=== PATIENT | male | born 1950 | race Caucasian/White ===

== ENCOUNTER 2016-07-15 10:37 | Inpatient (IN) | payer OTHER ==
[~2016-07-15] VITALS: Ht 177.8 cm; Wt 106.4 kg
[2016-07-15 11:31] LABS: EOSINOPHIL (%) 0.7 % (0-5); EOSINOPHIL COUNT 0.1 K/uL (0-0.3); HEMATOCRIT 44.5 % (38.0-50.0); IMMATURE GRANULOCYTE (%) 0.3 % (0.0-0.7); INSTRUMENT ABS NEUTROPHIL CT 4.9 K/uL; LYMPHOCYTE COUNT 1.3 K/uL (1.0-2.8); MCH 27.9 PG (29.0-34.0); MCHC 33.9 G/DL (30.0-36.0); MCV 82.1 FL (86-99); MEAN PLAT.VOLUME 9.9 uM^3 (9.0-12.4); MONOCYTE (%) 8.7 % (3-12); MONOCYTE COUNT 0.6 K/uL (0-0.8); NEUTROPHIL (%) 71.5 % (45-76); NEUTROPHIL COUNT 4.9 K/uL (1.8-6.4); PLATELET COUNT 263 K/uL (156-360); RBC DIS.WIDTH-CV 12.8 % (11.8-14.6); RBC DIS.WIDTH-SD 38.1 % (39-53); RED BLOOD COUNT 5.42 M/uL (4.00-5.50); WHITE BLOOD COUNT 6.9 K/uL (4.1-10.2)
[2016-07-15 11:41] LABS: PROTHROMBIN TIME 10.2 (9.2-11.2); PTT 25.4 (25-32)
[2016-07-15 11:42] LABS: CHLORIDE 107 mEq/L (99-109); POTASSIUM 3.9 mEq/L (3.7-5.4); SODIUM 138 mEq/L (136-147)
[2016-07-15 11:44] LABS: GLUCOSE 158 mg/dL (70-99)
[2016-07-15 11:45] LABS: ANION GAP 8 MEQ/L (2-14)
[2016-07-15 11:47] LABS: GFR ESTIMATE (CALCULATED) > 59 mL/min/
[2016-07-15 11:48] LABS: UREA NITROGEN (BUN) 16 mg/dL (9-23)
[2016-07-15 11:52] LABS: TROP-I INTERPRETATION NEGATIVE; TROPONIN-I 0.02 ng/mL (0.0-0.30)
[2016-07-15] MEDS ORDERED: FOSINOPRIL SODI20 MG PO (13:03)
[2016-07-15] MEDS ORDERED: ATORVASTATIN CA10 MG PO (13:03)
[2016-07-15] MEDS ORDERED: ZYLOPRIM300 MG PO (13:04)
[2016-07-15] MEDS ORDERED: ASPIRIN325 MG PO (13:04)
[2016-07-15] MEDS ORDERED: METFORMIN HCL500 MG PO (13:04)
[2016-07-15] MEDS ORDERED: HUMULIN R500 UNITS/ SC (13:08)
[2016-07-15 15:31] VITALS: BP 164/77
[2016-07-15 18:14] LABS: POINT-OF-CARE METER ID UU14174225; POINT-OF-CARE USER ID STWAMT
[2016-07-15 20:14] VITALS: BP 156/79
[2016-07-15 21:37] LABS: POINT-OF-CARE METER ID UU14174225
[2016-07-16] VITALS (7 sets, daily range): BP systolic 129–181; BP diastolic 75–93
[2016-07-16 06:51] LABS: HDL CHOLESTEROL 34 MG/DL (Desirable>=40); LDL CHOLESTEROL 114 mg/dL (Desirable<100); NON-HDL CHOLESTEROL 145 mg/dL (Desirable<160); TOTAL CHOLESTEROL 179 mg/dL (Desirable<200); TRIGLYCERIDES 154 MG/DL (Normal: <150)
[2016-07-16 08:09] LABS: Estimated Average Glucose 223 mg/dL (70-123); HEMOGLOBIN A1c (GLYCOHEMOGLOB) 9.4 % HGB (Below 5.7)
[2016-07-16 12:06] LABS: POINT-OF-CARE METER ID UU14188625
[2016-07-16 16:47] LABS: POINT-OF-CARE METER ID UU14188625
[2016-07-16 21:28] LABS: POINT-OF-CARE METER ID UU14174225
[2016-07-17 03:27] VITALS: BP 131/82
[2016-07-17 08:21] VITALS: BP 163/77
[2016-07-17] MEDS ORDERED: ASPIR-LOW81 MG PO (10:02)
[2016-07-17] MEDS ORDERED: LEVEMIR100 UNIT/2 SC (10:02)
[2016-07-17] MEDS ORDERED: NOVOLOG PE100 UNITS/ SC (10:02)
[2016-07-17] MEDS ORDERED: ATORVASTATIN CA40 MG PO (10:02)
== END 2016-07-17 13:13 | DRG 65 ==
LOC: EME → EDBD 10:37 → EME 10:37 → 5SOUTH 12:14 → EDOF 12:14 → 5SOUTH 15:10
PROVIDERS: Emergency Medicine; Hospitalist; Internal Medicine
DX: I63.8 Other cerebral infarction (principal); G81.91 Hemiplegia, unspecified affecting right dominant side; E11.9 Type 2 diabetes mellitus without complications; E78.5 Hyperlipidemia, unspecified; I10 Essential (primary) hypertension; R29.810 Facial weakness; M10.9 Gout, unspecified; J32.0 Chronic maxillary sinusitis; I67.2 Cerebral atherosclerosis; R26.0 Ataxic gait; I73.9 Peripheral vascular disease, unspecified; Z87.442 Personal history of urinary calculi; Z79.84 Long term (current) use of oral hypoglycemic drugs; Z79.82 Long term (current) use of aspirin; Z79.4 Long term (current) use of insulin; Z82.49 Family history of ischemic heart disease and other diseases of the circulatory system
CPT/HCPCS: 70450; 70551; 70553; 71010; 74230; 80048; 80061; 82948; 83036; 84484; 85025; 85610; 85730; 92610 GN; 92611 GN; 93005; 93306; 93880; 99281; 99284; J1650; J1815; J7030

== ENCOUNTER 2016-07-17 13:20 | Inpatient (IN) | payer OTHER ==
[~2016-07-17] VITALS: Ht 177.8 cm; Wt 104.7 kg
[~2016-07-17 13:20] MED LIST: ASPIR-LOW81 MG PO; ASPIRIN325 MG PO; ATORVASTATIN CA10 MG PO; ATORVASTATIN CA40 MG PO; FOSINOPRIL SODI20 MG PO; HUMULIN R500 UNITS/ SC; LEVEMIR100 UNIT/2 SC; METFORMIN HCL500 MG PO; NOVOLOG PE100 UNITS/ SC; ZYLOPRIM300 MG PO
[2016-07-17 13:43] VITALS: BP 152/76
[2016-07-17 15:50] VITALS: BP 166/85
[2016-07-17 16:53] LABS: POINT-OF-CARE METER ID UU13113720
[2016-07-17 21:32] LABS: POINT-OF-CARE METER ID UU13113720
[2016-07-17 22:55] VITALS: BP 139/70
[2016-07-18 05:21] VITALS: BP 146/75
[2016-07-18 05:54] LABS: HEMATOCRIT 46.2 % (38.0-50.0); MCH 27.7 PG (29.0-34.0); MCHC 33.5 G/DL (30.0-36.0); MCV 82.6 FL (86-99); PLATELET COUNT 264 K/uL (156-360); RBC DIS.WIDTH-CV 12.9 % (11.8-14.6); RBC DIS.WIDTH-SD 38.5 % (39-53); RED BLOOD COUNT 5.59 M/uL (4.00-5.50); WHITE BLOOD COUNT 6.2 K/uL (4.1-10.2)
[2016-07-18 06:21] LABS: ALKALINE PHOSPHATASE 71 IU/L (3-129); ANION GAP 7 MEQ/L (2-14); CHLORIDE 106 MEQ/L (99-109); GFR ESTIMATE (CALCULATED) > 59 mL/min/; GLUCOSE 156 mg/dL (70-99); POTASSIUM 4.3 MEQ/L (3.7-5.4); SAMPLE HEMOLYSIS CHECK 0; SAMPLE ICTERIC CHECK 0; SAMPLE LIPEMIA CHECK 0; SODIUM 138 MEQ/L (136-147); TOTAL BILIRUBIN 0.8 MG/DL (0.0-1.0); UREA NITROGEN (BUN) 21 mg/dL (9-23)
[2016-07-18 07:18] LABS: POINT-OF-CARE METER ID UU13113720
[2016-07-18 11:38] LABS: POINT-OF-CARE METER ID UU13113720
[2016-07-18 15:49] VITALS: BP 148/73
[2016-07-18 16:13] LABS: POINT-OF-CARE METER ID UU13113720
[2016-07-18 21:43] LABS: POINT-OF-CARE METER ID UU13113720
[2016-07-19 05:52] VITALS: BP 170/79
[2016-07-19 06:07] VITALS: BP 152/73
[2016-07-19 06:33] LABS: POINT-OF-CARE METER ID UU13113720
[2016-07-19 11:26] LABS: POINT-OF-CARE METER ID UU13113720
[2016-07-19 15:50] VITALS: BP 141/72
[2016-07-19 16:15] LABS: POINT-OF-CARE METER ID UU13113720
[2016-07-19 21:25] LABS: POINT-OF-CARE METER ID UU13113720
[2016-07-20 05:27] VITALS: BP 126/79
[2016-07-20 06:41] LABS: POINT-OF-CARE METER ID UU13113720; POINT-OF-CARE USER ID ENVGAF
[2016-07-20 11:28] LABS: POINT-OF-CARE METER ID UU13113720; POINT-OF-CARE USER ID ENVGAF
[2016-07-20 15:44] VITALS: BP 134/63
[2016-07-20 16:21] LABS: POINT-OF-CARE METER ID UU14174215
[2016-07-20 20:55] LABS: POINT-OF-CARE METER ID UU14174215
[2016-07-21 05:35] VITALS: BP 123/70
[2016-07-21 07:01] LABS: POINT-OF-CARE METER ID UU13113720; POINT-OF-CARE USER ID ENVGAF
[2016-07-21 11:06] LABS: POINT-OF-CARE METER ID UU14174215
[2016-07-21 11:14] LABS: HEMATOCRIT 46.8 % (38.0-50.0); MCH 28.4 PG (29.0-34.0); MCHC 34.6 G/DL (30.0-36.0); MEAN PLAT.VOLUME 10.3 uM^3 (9.0-12.4); PLATELET COUNT 258 K/uL (156-360); RBC DIS.WIDTH-CV 13.1 % (11.8-14.6); RBC DIS.WIDTH-SD 38.7 % (39-53); RED BLOOD COUNT 5.71 M/uL (4.00-5.50); WHITE BLOOD COUNT 7.5 K/uL (4.1-10.2)
[2016-07-21 11:27] LABS: CHLORIDE 107 mEq/L (99-109); POTASSIUM 4.4 mEq/L (3.7-5.4); SODIUM 135 mEq/L (136-147)
[2016-07-21 11:29] LABS: GLUCOSE 177 mg/dL (70-99)
[2016-07-21 11:30] LABS: ANION GAP 10 MEQ/L (2-14)
[2016-07-21 11:31] LABS: TOTAL BILIRUBIN 0.7 mg/dL (0.0-1.0)
[2016-07-21 11:32] LABS: ALKALINE PHOSPHATASE 72 IU/L (3-129)
[2016-07-21 11:33] LABS: GFR ESTIMATE (CALCULATED) > 59 mL/min/
[2016-07-21 11:34] LABS: UREA NITROGEN (BUN) 33 mg/dL (9-23)
[2016-07-21 15:20] VITALS: BP 123/68
[2016-07-21 16:33] LABS: POINT-OF-CARE METER ID UU13113720
[2016-07-21 21:07] LABS: POINT-OF-CARE METER ID UU14174215
[2016-07-22 06:00] VITALS: BP 135/67
[2016-07-22 06:41] LABS: POINT-OF-CARE METER ID UU13113720; POINT-OF-CARE USER ID ENVGAF
[2016-07-22 11:26] LABS: POINT-OF-CARE METER ID UU13113720; POINT-OF-CARE USER ID ENVGAF
[2016-07-22 15:25] VITALS: BP 132/63
[2016-07-22 16:27] LABS: POINT-OF-CARE METER ID UU14174215
[2016-07-22 21:40] LABS: POINT-OF-CARE METER ID UU13113720
[2016-07-23 05:53] VITALS: BP 143/74
[2016-07-23 07:09] LABS: POINT-OF-CARE METER ID UU13113720
[2016-07-23 12:03] LABS: POINT-OF-CARE METER ID UU13113720
[2016-07-23 16:20] VITALS: BP 125/64
[2016-07-23 16:41] LABS: POINT-OF-CARE METER ID UU13113720
[2016-07-23 21:20] LABS: POINT-OF-CARE METER ID UU13113720
[2016-07-24 05:43] VITALS: BP 145/78
[2016-07-24 06:41] LABS: POINT-OF-CARE METER ID UU13113720; POINT-OF-CARE USER ID ENVGAF
[2016-07-24 12:06] LABS: POINT-OF-CARE METER ID UU13113720; POINT-OF-CARE USER ID ENVGAF
[2016-07-24 15:08] VITALS: BP 117/63
[2016-07-24 16:15] LABS: POINT-OF-CARE METER ID UU14174215
[2016-07-24 21:07] LABS: POINT-OF-CARE METER ID UU14174215
[2016-07-25 05:15] VITALS: BP 131/73
[2016-07-25 06:48] LABS: POINT-OF-CARE METER ID UU13113720; POINT-OF-CARE USER ID ENVGAF
[2016-07-25 11:26] LABS: POINT-OF-CARE METER ID UU13113720
[2016-07-25 15:09] VITALS: BP 131/56
[2016-07-25 16:20] LABS: POINT-OF-CARE METER ID UU14174215
[2016-07-25 21:18] LABS: POINT-OF-CARE METER ID UU14174215
[2016-07-26 05:04] VITALS: BP 145/79
[2016-07-26 07:08] LABS: POINT-OF-CARE METER ID UU14174215
[2016-07-26 12:12] LABS: POINT-OF-CARE METER ID UU14174215
[2016-07-26 15:29] VITALS: BP 120/63
[2016-07-26 16:44] LABS: POINT-OF-CARE METER ID UU13113720
[2016-07-26 21:04] LABS: POINT-OF-CARE METER ID UU14174215
[2016-07-27 05:11] VITALS: BP 160/80
[2016-07-27 07:03] LABS: POINT-OF-CARE METER ID UU14174215
[2016-07-27 12:34] LABS: POINT-OF-CARE METER ID UU13113720
[2016-07-27 15:44] VITALS: BP 136/61
[2016-07-27 16:32] LABS: POINT-OF-CARE METER ID UU13113720
[2016-07-27 21:02] LABS: POINT-OF-CARE METER ID UU14174215
[2016-07-28 05:57] VITALS: BP 156/73
[2016-07-28 07:44] LABS: POINT-OF-CARE METER ID UU14174215
[2016-07-28 12:03] LABS: POINT-OF-CARE METER ID UU13113720
[2016-07-28 15:40] VITALS: BP 141/70
[2016-07-28 16:13] LABS: POINT-OF-CARE METER ID UU14174215
[2016-07-28 20:54] LABS: POINT-OF-CARE METER ID UU14174215
[2016-07-29 05:21] VITALS: BP 164/76
[2016-07-29 06:59] LABS: POINT-OF-CARE METER ID UU13113720; POINT-OF-CARE USER ID ENVGAF
[2016-07-29 11:11] LABS: POINT-OF-CARE METER ID UU13113720
[2016-07-29 16:10] LABS: POINT-OF-CARE METER ID UU14174215
[2016-07-29 16:25] VITALS: BP 130/68
[2016-07-29 21:29] LABS: POINT-OF-CARE METER ID UU14174215
[2016-07-30 04:02] VITALS: BP 140/77
[2016-07-30 06:24] LABS: POINT-OF-CARE METER ID UU13113720; POINT-OF-CARE USER ID ENVGAF
[2016-07-30 07:11] LABS: EOSINOPHIL COUNT 0.2 K/uL (0-0.3); HEMATOCRIT 44.6 % (38.0-50.0); IMMATURE GRANULOCYTE (%) 0.2 % (0.0-0.7); INSTRUMENT ABS NEUTROPHIL CT 2.6 K/uL; LYMPHOCYTE COUNT 2.3 K/uL (1.0-2.8); MCH 27.8 PG (29.0-34.0); MCHC 33.2 G/DL (30.0-36.0); MCV 83.8 FL (86-99); MEAN PLAT.VOLUME 10.9 uM^3 (9.0-12.4); MONOCYTE (%) 10.4 % (3-12); MONOCYTE COUNT 0.6 K/uL (0-0.8); NEUTROPHIL (%) 45.6 % (45-76); NEUTROPHIL COUNT 2.6 K/uL (1.8-6.4); PLATELET COUNT 204 K/uL (156-360); RBC DIS.WIDTH-SD 39.4 % (39-53); RED BLOOD COUNT 5.32 M/uL (4.00-5.50); WHITE BLOOD COUNT 5.8 K/uL (4.1-10.2)
[2016-07-30 07:38] LABS: ALKALINE PHOSPHATASE 68 IU/L (3-129); ANION GAP 8 MEQ/L (2-14); CHLORIDE 107 MEQ/L (99-109); GFR ESTIMATE (CALCULATED) 59 mL/min/; GLUCOSE 201 mg/dL (70-99); POTASSIUM 4.7 MEQ/L (3.7-5.4); SAMPLE HEMOLYSIS CHECK 0; SAMPLE ICTERIC CHECK 0; SAMPLE LIPEMIA CHECK 0; SODIUM 139 MEQ/L (136-147); TOTAL BILIRUBIN 0.6 MG/DL (0.0-1.0); UREA NITROGEN (BUN) 38 mg/dL (9-23)
[2016-07-30 11:52] LABS: POINT-OF-CARE METER ID UU13113720; POINT-OF-CARE USER ID AHSSSJB31
[2016-07-30 16:11] LABS: POINT-OF-CARE METER ID UU14174215
[2016-07-30 16:21] VITALS: BP 104/64
[2016-07-30 21:40] LABS: POINT-OF-CARE METER ID UU13113720
[2016-07-31 05:24] VITALS: BP 138/67
[2016-07-31 07:27] LABS: POINT-OF-CARE METER ID UU13113720
[2016-07-31 12:12] LABS: POINT-OF-CARE METER ID UU13113720
[2016-07-31 15:47] VITALS: BP 93/52
[2016-07-31 16:21] LABS: POINT-OF-CARE METER ID UU13113720
[2016-07-31 16:32] VITALS: BP 127/66
[2016-07-31 21:15] LABS: POINT-OF-CARE METER ID UU13113720
[2016-08-01 05:37] VITALS: BP 133/69
[2016-08-01 07:42] LABS: POINT-OF-CARE METER ID UU13113720
[2016-08-01 11:29] LABS: POINT-OF-CARE METER ID UU13113720
[2016-08-01 15:21] VITALS: BP 132/65
[2016-08-01 16:23] LABS: POINT-OF-CARE METER ID UU13113720
[2016-08-01 21:29] LABS: POINT-OF-CARE METER ID UU13113720
[2016-08-02 04:19] VITALS: BP 142/67
[2016-08-02 07:39] LABS: POINT-OF-CARE METER ID UU14174215
[2016-08-02 08:20] VITALS: BP 92/52
[2016-08-02 11:58] LABS: POINT-OF-CARE METER ID UU13113720
[2016-08-02 15:58] VITALS: BP 113/64
[2016-08-02 16:55] LABS: POINT-OF-CARE METER ID UU14174215
[2016-08-02 21:22] LABS: POINT-OF-CARE METER ID UU14174215
[2016-08-03 04:00] VITALS: BP 133/72
[2016-08-03 06:32] LABS: POINT-OF-CARE METER ID UU14174215; POINT-OF-CARE USER ID ENVGAF
[2016-08-03 11:31] LABS: POINT-OF-CARE METER ID UU14174215; POINT-OF-CARE USER ID AHSSSJB31
[2016-08-03 15:12] VITALS: BP 117/55
[2016-08-03 16:40] LABS: POINT-OF-CARE METER ID UU14174215
[2016-08-03 21:26] LABS: POINT-OF-CARE METER ID UU14174215
[2016-08-04 05:10] VITALS: BP 136/64
[2016-08-04 06:42] LABS: POINT-OF-CARE METER ID UU13113720; POINT-OF-CARE USER ID ENVGAF
[2016-08-04 06:49] LABS: HEMATOCRIT 43.8 % (38.0-50.0); MCH 28.9 PG (29.0-34.0); MCHC 34.2 G/DL (30.0-36.0); MCV 84.4 FL (86-99); MEAN PLAT.VOLUME 10.8 uM^3 (9.0-12.4); PLATELET COUNT 188 K/uL (156-360); RBC DIS.WIDTH-CV 13.2 % (11.8-14.6); RBC DIS.WIDTH-SD 40.4 % (39-53); RED BLOOD COUNT 5.19 M/uL (4.00-5.50)
[2016-08-04 07:22] LABS: ALKALINE PHOSPHATASE 63 IU/L (3-129); ANION GAP 8 MEQ/L (2-14); CHLORIDE 108 MEQ/L (99-109); GFR ESTIMATE (CALCULATED) 59 mL/min/; GLUCOSE 141 mg/dL (70-99); POTASSIUM 4.9 MEQ/L (3.7-5.4); SAMPLE HEMOLYSIS CHECK 0; SAMPLE ICTERIC CHECK 0; SAMPLE LIPEMIA CHECK 0; SODIUM 140 MEQ/L (136-147); TOTAL BILIRUBIN 0.6 MG/DL (0.0-1.0); UREA NITROGEN (BUN) 38 mg/dL (9-23)
[2016-08-04 11:26] LABS: POINT-OF-CARE METER ID UU13113720
[2016-08-04 15:41] VITALS: BP 128/67
[2016-08-04 16:08] LABS: POINT-OF-CARE METER ID UU13113720
[2016-08-04 20:49] LABS: POINT-OF-CARE METER ID UU14174215
[2016-08-05 04:20] VITALS: BP 138/75
[2016-08-05 07:39] LABS: POINT-OF-CARE METER ID UU14174215
[2016-08-05] MEDS ORDERED: ATORVASTATIN CA40 MG PO (08:08)
[2016-08-05] MEDS ORDERED: ASPIR-LOW81 MG PO (08:08)
[2016-08-05] MEDS ORDERED: METFORMIN HCL500 MG PO (08:08)
[2016-08-05] MEDS ORDERED: MIRTAZAPINE7.5 MG PO (08:08)
[2016-08-05] MEDS ORDERED: GLIPIZIDE5 MG PO (08:08)
[2016-08-05] MEDS ORDERED: ZYLOPRIM300 MG PO (08:08)
[2016-08-05] MEDS ORDERED: FOSINOPRIL SODI20 MG PO (08:08)
[2016-08-05 11:31] LABS: POINT-OF-CARE METER ID UU14174215
== END 2016-08-05 13:55 | DRG 57 ==
LOC: 3WEST 13:20
PROVIDERS: Hospitalist; Physical Medicine & Rehabilitation Pain Medicine; Psychiatry & Neurology Neurology
PROC: F07M0ZZ Range of Motion and Joint Mobility Treatment of Musculoskeletal System - Whole Body (ICD-10-PCS; principal; 2016-07-17)
DX: I69.354 Hemiplegia and hemiparesis following cerebral infarction affecting left non-dominant side (principal); I69.391 Dysphagia following cerebral infarction; I69.322 Dysarthria following cerebral infarction; R13.10 Dysphagia, unspecified; M25.511 Pain in right shoulder; I10 Essential (primary) hypertension; E11.9 Type 2 diabetes mellitus without complications; E78.5 Hyperlipidemia, unspecified; E87.1 Hypo-osmolality and hyponatremia; F43.21 Adjustment disorder with depressed mood; G47.00 Insomnia, unspecified; I27.2 Other secondary pulmonary hypertension; I08.3 Combined rheumatic disorders of mitral, aortic and tricuspid valves; M10.9 Gout, unspecified; M65.342 Trigger finger, left ring finger; Z91.11 Patient's noncompliance with dietary regimen; Z79.4 Long term (current) use of insulin; Z87.442 Personal history of urinary calculi; Z87.891 Personal history of nicotine dependence
CPT/HCPCS: 70450; 70551; 80053; 82948; 85025; 85027; 92507 GN; 92523 GN; 92526 GN; 92610 GN; 93005; 97110 GO; 97530 GP; J1650; J1815

== ENCOUNTER → 2016-12-28 | Outpatient (CLI) | payer OTHER ==
[~2016-12-28] MED LIST changes: +ASPIRIN EC325 MG PO; +ATORVASTATIN CA80 MG PO; +GLIPIZIDE5 MG PO; +LIPITOR20 MG PO; +MIRTAZAPINE7.5 MG PO
== END | disposition home or self-care (01) ==
DX: I69.391 Dysphagia following cerebral infarction (principal); R13.12 Dysphagia, oropharyngeal phase
CPT/HCPCS: 92611 GN; G8996 GN; G8997 GN; G8998 GN